=== PATIENT | male | born 1965 | race African-American/Black ===

== ENCOUNTER 2017-01-18 21:19 | Emergency (ER) | payer MEDICARE, OTHER ==
[~2017-01-18] VITALS: Ht 180.3 cm; Wt 86.2 kg
[2017-01-18 21:27] VITALS: BP 153/92
--- NOTE | 2017-01-18 21:28 | Emergency Room Report ---
History of Present Illness General Chief Complaint: Overdose Source: Patient, EMS Present Illness HPI Is a 51-year-old male with a history depression and previous history of alcohol and drug abuse. He said he was sober for 2 years. He said he had a lot of stress and feeling depressed. He said he threw away sobriety last week and started drinking again. Also start using crack cocaine. He had an argument with his he took a handful pills. There were gabapentin, tramadol, Ambien and amitriptyline. He said that he is not suicidal. He took his medication because he thought that he hasn't taken them yet. His told police that he was suicidal. Said that he did want to live anymore. He was brought in by police and EMS. Allergies: Coded Allergies: No Known Allergies (Unverified , 01/18/17) Patient History Past Medical History: see triage record, old chart reviewed, psych hx Past Surgical History: other Pertinent Family History: none Social History: Reports: alcohol use, drug use Immunizations: other Reviewed Nursing Documentation: PMH: Agreed, PSxH: Agreed Nursing Documentation-PMH Past Medical History: No History, Except For Review of Systems Eye: Denies: blurred vision, eye pain ENT: Denies: ear pain, nose congestion, throat swelling Respiratory: Denies: cough, shortness of breath Cardiovascular: Denies: chest pain, palpitations Gastrointestinal: Denies: abdominal pain, diarrhea, nausea, vomiting Musculoskeletal: Denies: back pain, joint pain Skin: Denies: rash Neurological: Denies: headache, numbness Endocrine: Denies: increased thirst, increased urine Hematologic/Lymphatic: Denies: easy bruising All Other Systems: negative except mentioned in HPI Physical Exam Vital Signs Date Time Temp Pulse Resp B/P Pulse Ox O2 Delivery O2 Flow Rate FiO2 01/18/17 21:17 68 16 137/104 99 Room Air vitals unremarkable Sp02 EP Interpretation: reviewed, normal General Appearance: well appearing, no apparent distress, alert, other - Sleepy Head: normocephalic, atraumatic Eyes: bilateral eye EOMI, bilateral eye PERRL ENT: hearing grossly normal, normal pharynx Neck: full range of motion, supple, no meningismus Respiratory: chest non-tender, lungs clear, normal breath sounds Cardiovascular #1: regular rate, rhythm, no murmur Gastrointestinal: normal bowel sounds, non tender, no mass, no organomegaly, no bruit, non-distended Musculoskeletal: back normal, gait/station normal, normal range of motion Psychiatric: mood/affect normal Skin: warm/dry Medical Decision Making Diagnostic Impression: Primary Impression: Drug overdose Qualified Codes: T50.904A - Poisoning by unspecified drugs, medicaments and biological substances, undetermined, initial encounter Additional Impressions: Polysubstance abuse Suicidal ideations ER Course Patient said that he took the medicine but it was by accident. He said that he had an argument his and was under stressed. He thought that he has not taken his medication yet. His now said that he is not suicidal. Patient is very angry. Police did mention to me that his said that he did not want to live anymore. We'll get psychiatric evaluation. Is medically clear. Patient insists that he's not suicidal. His now said that she doesn't thinks he would hurt himself. He does have multiple drugs on board. We'll get psychiatric evaluation. Lab Results Impression labs unremarkable. EKG Diagnostic Results Rate: normal Rhythm: NSR ST Segments: no acute changes Rhythm Strip Diag. Results EP Interpretation: yes Rate: 85 Rhythm: NSR, no PVC's, no ectopy Last Vital Signs Date Time Temp Pulse Resp B/P Pulse Ox O2 Delivery O2 Flow Rate FiO2 01/18/17 21:17 68 16 137/104 99 Room Air Status: improved Condition: Stable IBAN HUSSEIN M.D. Jan 18, 2017 21:28
[2017-01-18] MEDS ORDERED: Activated Charcoal 50gm/240ml Btl ORAL ONE (21:30)
[2017-01-18 22:14] LABS: BASOPHILS % (AUTO) 1.8 % (0.0-2.0); EOSINOPHILS % (AUTO) 5.3 % (0.0-3.0); LYMPHOCYTES % (AUTO) 30.7 % (20.0-45.0); MEAN CORPUSCULAR HEMOGLOBIN 31.7 PG (27.0-31.0); MEAN CORPUSCULAR HGB CONC 33.3 G/DL (32.0-36.0); MEAN CORPUSCULAR VOLUME 95 FL (80-99); MEAN PLATELET VOLUME 8.2 FL (6.5-10.1); NEUTROPHILS % (AUTO) 55.1 % (45.0-75.0); PLATELET COUNT 161 K/UL (150-450); RED BLOOD COUNT 3.98 M/UL (4.70-6.10); RED CELL DISTRIBUTION WIDTH 12.3 % (11.6-14.8); WHITE BLOOD COUNT 6.8 K/UL (4.8-10.8)
[2017-01-18 22:28] LABS: ACETAMINOPHEN < 10 ug/mL (10-30); ALANINE AMINOTRANSFERASE 53 U/L (3-41); ALCOHOL < 10 mg/dL; ANION GAP 13 (5-15); ASPARTATE AMINO TRANSFERASE 32 U/L (5-40); CALCIUM 9.2 mg/dL (8.6-10.2); CARBON DIOXIDE 29 mEQ/L (20-30); CHLORIDE 99 mEQ/L (98-107); GLOMERULAR FILTRATION RATE > 60 mL/min (>60); HEMOLYSIS 10; POTASSIUM 4.1 mEQ/L (3.4-4.9); SODIUM 141 mEQ/L (135-145); TOTAL PROTEIN 6.1 g/dL (6.6-8.7)
[2017-01-18 22:37] VITALS: BP 132/79
[2017-01-18 23:35] VITALS: BP 130/96
[2017-01-18 23:53] LABS: APPEARANCE,URINE CLEAR; KETONES,URINE NEGATIVE (NEGATIVE); LEUKOCYTE ESTERASE ,URINE 1+ (NEGATIVE); NITRITE,URINE NEGATIVE (NEGATIVE); PH,URINE 5 (4.5-8.0); PROTEIN,URINE 1+ (NEGATIVE); UROBILINOGEN,URINE NORMAL MG/DL (0.0-1.0)
[2017-01-19 00:02] LABS: BACTERIA,URINE FEW /HPF; RBC,URINE 0-2 /HPF (0 - 0); WBC,URINE 0-2 /HPF (0 - 0)
[2017-01-19 01:30] VITALS: BP 114/58
[2017-01-19 03:30] VITALS: BP 117/59
[2017-01-19 05:29] VITALS: BP 120/60
[2017-01-19] MEDS ORDERED: Acetaminophen 500mg (ES) tab ORAL ONE (07:00)
[2017-01-19 09:10] VITALS: BP 135/74
[2017-01-19 12:14] VITALS: BP 135/74
--- NOTE | 2017-01-22 16:15 | Cardiology Report ---
APPROVED REPORT EKG Measurement Heart [id number] Normal sinus rhythm Normal ECG
== END 2017-01-19 12:16 | disposition left against medical advice (07) ==
LOC: EDBD 21:19 → EMR 21:25
DX: T40.4X2A Poisoning by other synthetic narcotics, intentional self-harm, initial encounter (principal); T42.6X2A Poisoning by other antiepileptic and sedative-hypnotic drugs, intentional self-harm, initial encounter; Y92.9 Unspecified place or not applicable; F10.10 Alcohol abuse, uncomplicated; F14.10 Cocaine abuse, uncomplicated
CPT/HCPCS: 36415; 80053; 80300; 81003; 85025; 93005; 99283; G0480; 80329

== ENCOUNTER 2017-01-19 13:08 | Emergency (ER) | payer MEDICARE, OTHER ==
[~2017-01-19] VITALS: Ht 180.3 cm; Wt 86.2 kg
--- NOTE | 2017-01-19 13:26 | Emergency Room Report ---
History of Present Illness General Chief Complaint: To Be Triaged Present Illness HPI The pt is a 51-year-old male with a history of depression and drug abuse presenting for possible SI. Pt initially eloped to go outside and smoke. Pt has now returned and had to be re-registered. Please see original note by Dr. Montgomery. Allergies: Coded Allergies: No Known Allergies (Unverified , 01/18/17) Patient History Past Medical History: see triage record, psych hx Social History: Reports: alcohol use, drug use Reviewed Nursing Documentation: PMH: Agreed, PSxH: Agreed Review of Systems All Other Systems: negative except mentioned in HPI Physical Exam Sp02 EP Interpretation: reviewed, normal General Appearance: no apparent distress, alert, GCS 15, non-toxic Head: normocephalic, atraumatic Eyes: bilateral eye PERRL, bilateral eye normal inspection ENT: hearing grossly normal, normal pharynx, no angioedema, normal voice Respiratory: chest non-tender, lungs clear, normal breath sounds, speaking full sentences Cardiovascular #1: regular rate, rhythm, no edema Gastrointestinal: normal bowel sounds, non tender, soft, non-distended, no guarding, no rebound Musculoskeletal: back normal, gait/station normal, normal range of motion, non- tender Neurologic: alert, oriented x3, responsive, motor strength/tone normal, sensory intact, normal gait, speech normal Psychiatric: normal inspection, mood/affect normal, no suicidal/homicidal ideation Skin: normal color, no rash, warm/dry, well hydrated Lymphatic: no adenopathy Medical Decision Making PA Attestation Dr. Finn is my supervising physician. Patient management was discussed with my supervising physician Diagnostic Impression: Primary Impression: Drug abuse Additional Impression: Depression Qualified Codes: F33.9 - Major depressive disorder, recurrent, unspecified ER Course The pt is a 51-year-old male with a history of depression and drug abuse presenting for possible SI. Pt initially eloped to go outside and smoke. Pt has now returned and had to be re-registered. Please see original note by Dr. Montgomery. Differential diagnoses considered but not limited to suicidal ideation, homicidal ideation, depression PE: No apparent distress. A&Ox4 PERRL. EOMI. Normal mentation. No SI. RRR. No MRG Lungs CTA bilat Abdomen: Normal appearance. Non distended. No ecchymosis. Normal BS. Non TTP. No McBurney point tenderness. No guarding. Skin is warm and dry, no rashes. Please see original note by Valentina for initial MDM Pt was medically cleared by Dr. Montgomery and has been seen by Psychiatrist Dr. Oh The pt is cleared to be DC'ed and is given instructions to FU with psychiatrist and to refrain from using drugs. ER precautions given Status: improved Disposition: HOME, SELF-CARE Condition: Improved JOSE CARABALLO Jan 19, 2017 13:26
[2017-01-19 15:16] VITALS: BP 150/79
[2017-01-19 17:12] VITALS: BP 142/74
[2017-01-19 17:13] VITALS: BP 142/74
--- NOTE | 2017-01-20 02:38 | Consultation ---
DATE OF CONSULTATION: HISTORY OF PRESENT ILLNESS: This is a 51-year-old -[place] male with a history of alcohol and cocaine abuse, also history of depression and anxiety, who took an overdose of medication. He is overdosed on a combination of Soma, morphine, Vicodin, and mixed it with alcohol. When I entered the room his was sleeping next to him in the hospital bed. The patient was tearful, stated that he has been depressed and anxious. He has been going through a rough patch in his life. He has had several relapses, most recent relapse was in the context of his niece and daughter, who were both gonzalez who moved into his house with their children, and he stated that he is financially under stress, also he has been working in a [employer]. He is also stressed out over there and he has not been attending his meeting, he has not been seeing his psychiatrist and he has relapsed. PAST PSYCHIATRIC HISTORY: Had several psychiatric hospitalizations. He has not had a suicide attempt in the past. He has been treated with antidepressant. PAST MEDICAL HISTORY: Includes multiple trauma, he has got into an accident at work and hurt his back and knees. ALLERGIES: No known drug allergies. MEDICATIONS: He has been taking pain medications. SUBSTANCE ABUSE HISTORY: Cocaine and alcohol, has been taking for about decades. MENTAL STATUS EXAMINATION: The patient is alert, oriented x4. Mood is depressed and anxious. Affect is constricted. Congruent with mood. Thought process is linear. Thought content, no suicidal or homicidal ideation. No psychotic symptoms. No ADH, delusions. Insight and judgment fair. ASSESSMENT: 1. AXIS I: Major depressive disorder, recurrent, moderate. Alcohol dependent.Cocaine dependent. 2. AXIS II: Deferred. 3. AXIS III: As above. 4. AXIS IV: Moderate. 5. AXIS V: GAF 20. PLAN: 1. The patient was told to go to the nearest emergency room if he feels suicidal or homicidal. His was at bedside. He was specifically instructed to go to [facility] or [facility] if he became suicidal. 2. The patient would like to leave the hospital at this time and follow up with his own psychiatrist and therapist. 3. He is reluctant to take any psychotropic medication. 4. He is not holdable nor meet the criteria for inpatient level of care. Cailin Oh M.D. DR: Caesar JOB#: [id number] CC:
== END 2017-01-19 17:16 | disposition home or self-care (01) ==
LOC: EMR 13:45
DX: F33.1 Major depressive disorder, recurrent, moderate (principal); F10.20 Alcohol dependence, uncomplicated; F14.20 Cocaine dependence, uncomplicated; F41.9 Anxiety disorder, unspecified
CPT/HCPCS: 99284